=== PATIENT | female | born 1940 | race Caucasian/White ===

== ENCOUNTER 2022-08-12 18:23 | Emergency (ER) | payer MEDICARE, OTHER ==
[~2022-08-12] VITALS: Ht 165.1 cm; Wt 78.0 kg
[2022-08-12] MEDS ORDERED: ACETAMINOPHEN ES 500 MG TABLET PO ONE (18:30)
[2022-08-12] MEDS ORDERED: ACETAMINOPHEN ES 500 MG TABLET ONE (18:37)
[2022-08-12] MEDS ORDERED: SENN-261 PO (19:06)
[2022-08-12] MEDS ORDERED: BISA10SU11 RC (19:06)
[2022-08-12] MEDS ORDERED: ALBU8.5H8 IH (19:06)
[2022-08-12] MEDS ORDERED: RISP0.2515 PO (19:06)
[2022-08-12] MEDS ORDERED: AZEL137S7 (19:06)
[2022-08-12] MEDS ORDERED: MAGN400T26 PO (19:06)
[2022-08-12] MEDS ORDERED: BUDE10.22 IH (19:06)
[2022-08-12] MEDS ORDERED: LEVO125T8 PO (19:06)
[2022-08-12] MEDS ORDERED: ACET-868 PO (19:06)
[2022-08-12] MEDS ORDERED: OXCA300T4 PO (19:06)
[2022-08-12] MEDS ORDERED: TYL2T PO (19:06)
[2022-08-12] MEDS ORDERED: ACET-2605 PO (19:06)
[2022-08-12] MEDS ORDERED: IPRA21SP (19:06)
[2022-08-12] MEDS ORDERED: CLOT15CR27 TP (19:06)
[2022-08-12] MEDS ORDERED: METO25TA3 PO (19:06)
[2022-08-12] MEDS ORDERED: FLUT16SP (19:06)
[2022-08-12] MEDS ORDERED: DOCU-141 PO (19:06)
--- NOTE | 2022-08-12 19:10 | NUR ---
NISREEN BEST [address] "From [facility] earlier today +laceration at back of head". On room air, breathing evenly and unlabored. Kept comfortable, will continue to monitor accordingly.
--- NOTE | 2022-08-12 21:35 | NUR ---
[facility] CALLED ETA 90-120 MINUTES
--- NOTE | 2022-08-12 22:17 | NUR ---
REPORT GIVEN TO CELSO AT [facility]
[2022-08-12 23:11] VITALS: BP 110/66
--- NOTE | 2022-08-12 23:11 | NUR ---
patient picked up by private ambulance in no distress, going back to [facility].
== END 2022-08-12 23:11 ==
LOC: ER 18:29
DX: S01.01XA Laceration without foreign body of scalp, initial encounter (principal); R51.9 Headache, unspecified; W18.30XA Fall on same level, unspecified, initial encounter; Y93.89 Activity, other specified; Y92.89 Other specified places as the place of occurrence of the external cause; Y99.8 Other external cause status
CPT/HCPCS: 70450-TC

== ENCOUNTER 2023-03-31 12:25 | Inpatient (IN) | payer MEDICARE, OTHER ==
[~2023-03-31] VITALS: Ht 172.7 cm; Wt 78.5 kg
[~2023-03-31 12:25] MED LIST: ACET-2605 PO; ACET-868 PO; ALBU8.5H8 IH; AZEL137S7; BUDE10.22 IH; DOCU-141 PO; FLUT16SP; IPRA21SP; LEVO125T8 PO; MAG30ORA PO; MAGN400O6 PO; MAGN400T26 PO; METO25TA3 PO; NA P133E RC; OXCA300T4 PO; RISP0.2515 PO; SENN-261 PO; TYL2T PO
[2023-03-31 13:02] LABS: BASOPHILS # (AUTO) 0.1 K/uL (0.0-0.2); BASOPHILS % (AUTO) 1.2 % (0.0-2.0); EOSINOPHILS % (AUTO) 2.9 % (0.0-6.0); HEMATOCRIT 34 % (33-45); HEMOGLOBIN 11.3 g/dL (11.5-14.8); LYMPHOCYTES # (AUTO) 1.4 K/uL (0.8-4.8); LYMPHOCYTES % (AUTO) 22.8 % (20.0-44.0); MEAN CORPUSCULAR HGB CONC 33 g/dl (31.0-36.0); MEAN CORPUSCULAR VOLUME 90 fL (82-100); MONOCYTES # (AUTO) 0.4 K/uL (0.1-1.30); MONOCYTES % (AUTO) 6.7 % (2.0-12.0); NEUTROPHILS # (AUTO) 4.2 K/uL (1.8-8.9); NEUTROPHILS % (AUTO) 66.4 % (43.0-81.0); PLATELET COUNT (AUTO) 217 K/uL (150-450); RED BLOOD CELL COUNT(AUTO) 3.81 MIL/uL (4.0-5.2); WHITE BLOOD COUNT (AUTO) 6.3 K/uL (4.3-11.0)
[2023-03-31 13:16] LABS: ALANINE AMINOTRANSFERASE 51 U/L (12-78); ALBUMIN 3.3 g/dL (3.4-5.0); ALCOHOL, BLOOD < 3 mg/dL (0-10); ALKALINE PHOSPHATASE 83 U/L (46-116); ASPARTATE AMINOTRANSFERASE 25 U/L (15-37); BILIRUBIN,TOTAL 0.2 mg/dL (0.2-1.0); CALCIUM, SERUM 9.8 mg/dL (8.5-10.1); CARBON DIOXIDE 25 mmol/L (21-32); CHLORIDE 107 mmol/L (98-107); CREATININE 0.8 mg/dL (0.6-1.3); GLUCOSE 158 mg/dL (74-106); POTASSIUM 4.6 mmol/L (3.5-5.1); SODIUM SERUM 138 mmol/L (136-145); TOTAL PROTEIN, SERUM 6.8 g/dL (6.4-8.2); UREA NITROGEN, BLOOD 18 mg/dL (7-18)
[2023-03-31 15:24] LABS: BILIRUBIN,URINE NEGATIVE (NEGATIVE); COLOR,URINE YELLOW (YELLOW); LEUKOCYTE ESTERASE ,URINE NEGATIVE (NEGATIVE); NITRITE, URINE NEGATIVE (NEGATIVE); PROTEIN,URINE NEGATIVE (NEGATIVE); UGLUCOSE NEGATIVE (NEGATIVE); UROBILINOGEN,URINE 0.2 EU/dL (0.2)
[2023-03-31 20:00] VITALS: BP 153/79; TEMP 98.1; O2SAT 95
[2023-03-31] MEDS ORDERED: ACETAMINOPHEN 325 MG TABLET PO PRN (20:00)
[2023-03-31] MEDS ORDERED: MAG HYDROX/AL HYDROX/SIMETH 30 ML UDC PO PRN (20:00)
[2023-03-31] MEDS ORDERED: MAGNESIUM HYDROXIDE 30 ML UDC PO PRN (20:00)
[2023-03-31] MEDS ORDERED: LORAZEPAM 0.5 MG TABLET PO PRN (20:00)
[2023-03-31] MEDS ORDERED: BLOOD SUGAR DIAGNOSTIC 1 EACH STRIP IN ONE (20:00)
[2023-03-31 20:26] VITALS: BP 166/92; TEMP 98.1; O2SAT 95
[2023-04-01] MEDS: TEMAZEPAM 7.5 MG CAPSULE PO PRN (00:53)
[2023-04-01 07:14] LABS: CREATININE 0.7 mg/dL (0.6-1.3)
[2023-04-01 08:00] VITALS: BP 136/74; TEMP 98.7; O2SAT 95
[2023-04-01] MEDS ORDERED: NA PHOS,M-B/NA PHOS,DI-BA 1 EA ENEMA RC PRN (08:30)
[2023-04-01] MEDS ORDERED: ACETAMINOPHEN 325 MG TABLET PO PRN (08:30)
[2023-04-01] MEDS ORDERED: IPRATROPIUM BROMIDE 0.03 % 30 ML NASPR NS SCH (09:00)
[2023-04-01] MEDS ORDERED: ALBUTEROL FS 2.5 MG/0.5 ML VIAL.NEB IH PRN (09:00)
[2023-04-01] MEDS: FLUTICASONE PROPIONATE 16 GM BOTTLE NS SCH (09:52)
[2023-04-01] MEDS: DOCUSATE SODIUM 100 MG CAPSULE PO SCH ×2 (09:52→16:45)
[2023-04-01] MEDS: SENNOSIDES 8.6 MG TABLET PO SCH ×2 (09:52→16:44)
[2023-04-01] MEDS: METOPROLOL SUCCINATE 25 MG TAB.SR.24H PO SCH (09:53)
[2023-04-01] MEDS: MAGNESIUM OXIDE 400 MG TABLET PO SCH (09:53)
[2023-04-01] MEDS: OXCARBAZEPINE 150 MG TABLET PO SCH ×2 (14:15→16:44)
[2023-04-01] MEDS: risperiDONE 1 MG TABLET PO SCH ×5 (14:16→22:23)
[2023-04-01] MEDS ORDERED: IPRATROPIUM NEB FS 0.5 MG/2.5 ML AMPUL.NEB NEB SCH (15:30)
[2023-04-01 16:00] VITALS: BP 126/64; TEMP 97.7; O2SAT 96
[2023-04-01] MEDS ORDERED: ALBU2.5V13 IH (16:48)
[2023-04-01] MEDS ORDERED: FLUT16SP16 BNOSTRILS (16:48)
[2023-04-01] MEDS ORDERED: RISP0.5T5 PO (16:48)
[2023-04-01] MEDS ORDERED: ATOR20TA PO (16:48)
[2023-04-01] MEDS ORDERED: BUDE0.5A IH (16:48)
[2023-04-01] MEDS ORDERED: ALBU2.5V38 IH (16:48)
[2023-04-01] MEDS ORDERED: CLOTRIMAZOLE CREAM TP (16:48)
[2023-04-01 20:19] VITALS: BP 112/57; TEMP 97.5; O2SAT 96
[2023-04-02 08:00] VITALS: BP 139/73; TEMP 98.6; O2SAT 95
[2023-04-02] MEDS: DOCUSATE SODIUM 100 MG CAPSULE PO SCH ×3 (09:59→18:23)
[2023-04-02] MEDS: LEVOTHYROXINE SODIUM 125 MCG TABLET PO SCH (09:59)
[2023-04-02] MEDS: SENNOSIDES 8.6 MG TABLET PO SCH ×3 (09:59→18:24)
[2023-04-02] MEDS: risperiDONE 1 MG TABLET PO SCH ×6 (10:00→21:33)
[2023-04-02] MEDS: MAGNESIUM OXIDE 400 MG TABLET PO SCH (10:00)
[2023-04-02] MEDS: METOPROLOL SUCCINATE 25 MG TAB.SR.24H PO SCH (10:01)
[2023-04-02] MEDS: OXCARBAZEPINE 150 MG TABLET PO SCH ×5 (10:01→18:24)
[2023-04-02] MEDS: FLUTICASONE PROPIONATE 16 GM BOTTLE NS SCH (10:09)
[2023-04-02 16:00] VITALS: BP 108/51; TEMP 98.1; O2SAT 98
[2023-04-02 20:00] VITALS: BP 134/71; TEMP 98.2; O2SAT 99
[2023-04-02] MEDS: ACETAMINOPHEN 325 MG TABLET PO PRN (21:43)
[2023-04-03] MEDS: TEMAZEPAM 7.5 MG CAPSULE PO PRN (01:54)
[2023-04-03 08:00] VITALS: BP 116/68; TEMP 97.7; O2SAT 96
[2023-04-03] MEDS: SENNOSIDES 8.6 MG TABLET PO SCH ×2 (08:07→17:55)
[2023-04-03] MEDS: LEVOTHYROXINE SODIUM 125 MCG TABLET PO SCH (08:07)
[2023-04-03] MEDS: DOCUSATE SODIUM 100 MG CAPSULE PO SCH ×2 (08:07→17:55)
[2023-04-03] MEDS: METOPROLOL SUCCINATE 25 MG TAB.SR.24H PO SCH (08:07)
[2023-04-03] MEDS: OXCARBAZEPINE 150 MG TABLET PO SCH ×3 (08:07→17:55)
[2023-04-03] MEDS: risperiDONE 1 MG TABLET PO SCH ×3 (08:08→21:48)
[2023-04-03] MEDS: MAGNESIUM OXIDE 400 MG TABLET PO SCH (08:08)
[2023-04-03] MEDS: FLUTICASONE PROPIONATE 16 GM BOTTLE NS SCH (08:09)
[2023-04-03 16:00] VITALS: BP 135/67; TEMP 98.6; O2SAT 96
[2023-04-03 20:00] VITALS: BP 123/58; TEMP 97.4; O2SAT 95
[2023-04-03] MEDS: BUDESONIDE RESPULE INH 0.5 MG/2 ML AMPUL.NEB NEB SCH ×2 (20:40→20:43)
[2023-04-03] MEDS: ALBUTEROL FS 2.5 MG/0.5 ML VIAL.NEB NEB SCH ×2 (20:40→20:43)
[2023-04-03 20:43] VITALS: O2SAT 96
[2023-04-03 21:06] VITALS: O2SAT 95
[2023-04-04] VITALS (10 sets, daily range): BP systolic 119–134; BP diastolic 54–66; TEMP 97.7–98.4; O2SAT 95–98
[2023-04-04] MEDS: ALBUTEROL FS 2.5 MG/0.5 ML VIAL.NEB NEB SCH ×4 (01:00→20:21)
[2023-04-04] MEDS: LEVOTHYROXINE SODIUM 125 MCG TABLET PO SCH ×2 (07:30→10:16)
[2023-04-04] MEDS: BUDESONIDE RESPULE INH 0.5 MG/2 ML AMPUL.NEB NEB SCH ×2 (08:24→20:21)
[2023-04-04] MEDS: SENNOSIDES 8.6 MG TABLET PO SCH ×3 (09:00→17:00)
[2023-04-04] MEDS: risperiDONE 1 MG TABLET PO SCH ×4 (09:00→21:19)
[2023-04-04] MEDS: DOCUSATE SODIUM 100 MG CAPSULE PO SCH ×3 (09:00→18:32)
[2023-04-04] MEDS: METOPROLOL SUCCINATE 25 MG TAB.SR.24H PO SCH ×2 (09:00→10:15)
[2023-04-04] MEDS: MAGNESIUM OXIDE 400 MG TABLET PO SCH ×2 (09:00→10:19)
[2023-04-04] MEDS: OXCARBAZEPINE 150 MG TABLET PO SCH ×3 (10:16→17:00)
[2023-04-04] MEDS: FLUTICASONE PROPIONATE 16 GM BOTTLE NS SCH (10:21)
[2023-04-04] MEDS: ACETAMINOPHEN 325 MG TABLET PO PRN (18:34)
[2023-04-05] MEDS: ALBUTEROL FS 2.5 MG/0.5 ML VIAL.NEB NEB SCH ×4 (00:45→19:30)
[2023-04-05] MEDS: BUDESONIDE RESPULE INH 0.5 MG/2 ML AMPUL.NEB NEB SCH ×2 (07:30→19:30)
[2023-04-05 08:00] VITALS: BP 143/69; TEMP 97.6; O2SAT 96
[2023-04-05] MEDS: risperiDONE 1 MG TABLET PO SCH ×5 (08:59→21:12)
[2023-04-05] MEDS: METOPROLOL SUCCINATE 25 MG TAB.SR.24H PO SCH ×2 (08:59→09:00)
[2023-04-05] MEDS: OXCARBAZEPINE 150 MG TABLET PO SCH ×4 (08:59→17:00)
[2023-04-05] MEDS: MAGNESIUM OXIDE 400 MG TABLET PO SCH ×2 (08:59→09:00)
[2023-04-05] MEDS: LEVOTHYROXINE SODIUM 125 MCG TABLET PO SCH (08:59)
[2023-04-05] MEDS: DOCUSATE SODIUM 100 MG CAPSULE PO SCH ×3 (08:59→17:00)
[2023-04-05] MEDS: SENNOSIDES 8.6 MG TABLET PO SCH ×3 (08:59→17:00)
[2023-04-05] MEDS: FLUTICASONE PROPIONATE 16 GM BOTTLE NS SCH (09:01)
[2023-04-05] MEDS ORDERED: OLANZAPINE 10 MG VIAL IM ONE (11:00)
[2023-04-05 16:00] VITALS: BP 122/58; TEMP 97.8; O2SAT 98
[2023-04-05 20:00] VITALS: BP 134/82; TEMP 98; O2SAT 97
[2023-04-05 20:49] VITALS: O2SAT 97
[2023-04-06] MEDS: ALBUTEROL FS 2.5 MG/0.5 ML VIAL.NEB NEB SCH ×3 (01:30→13:30)
[2023-04-06 02:03] VITALS: O2SAT 95
[2023-04-06] MEDS: BUDESONIDE RESPULE INH 0.5 MG/2 ML AMPUL.NEB NEB SCH (07:30)
[2023-04-06] MEDS: LEVOTHYROXINE SODIUM 125 MCG TABLET PO SCH ×2 (07:30→08:29)
[2023-04-06 08:00] VITALS: BP 131/77; TEMP 97.8; O2SAT 96
[2023-04-06] MEDS: OXCARBAZEPINE 150 MG TABLET PO SCH ×3 (08:33→17:00)
[2023-04-06] MEDS: METOPROLOL SUCCINATE 25 MG TAB.SR.24H PO SCH ×2 (08:33→09:00)
[2023-04-06] MEDS: DOCUSATE SODIUM 100 MG CAPSULE PO SCH ×3 (08:33→17:00)
[2023-04-06] MEDS: MAGNESIUM OXIDE 400 MG TABLET PO SCH ×2 (08:33→09:00)
[2023-04-06] MEDS: SENNOSIDES 8.6 MG TABLET PO SCH ×3 (08:34→17:00)
[2023-04-06] MEDS: risperiDONE 1 MG TABLET PO SCH ×4 (08:35→21:08)
[2023-04-06] MEDS: FLUTICASONE PROPIONATE 16 GM BOTTLE NS SCH ×2 (08:36→09:00)
[2023-04-06 16:00] VITALS: BP 117/60; TEMP 97.8; O2SAT 96
[2023-04-06 20:00] VITALS: BP 128/70; TEMP 98; O2SAT 98
[2023-04-07] MEDS: LEVOTHYROXINE SODIUM 125 MCG TABLET PO SCH (07:30)
[2023-04-07 08:00] VITALS: BP 141/72; TEMP 97.7; O2SAT 94
[2023-04-07] MEDS: DOCUSATE SODIUM 100 MG CAPSULE PO SCH ×2 (08:54→17:00)
[2023-04-07] MEDS: SENNOSIDES 8.6 MG TABLET PO SCH ×2 (08:54→17:00)
[2023-04-07] MEDS: risperiDONE 1 MG TABLET PO SCH ×3 (09:00→21:14)
[2023-04-07] MEDS: METOPROLOL SUCCINATE 25 MG TAB.SR.24H PO SCH (09:00)
[2023-04-07] MEDS: FLUTICASONE PROPIONATE 16 GM BOTTLE NS SCH (09:00)
[2023-04-07] MEDS: MAGNESIUM OXIDE 400 MG TABLET PO SCH (09:00)
[2023-04-07] MEDS: OXCARBAZEPINE 150 MG TABLET PO SCH ×3 (09:00→16:57)
[2023-04-07 16:00] VITALS: BP 129/70; TEMP 97.8; O2SAT 94
[2023-04-07 20:00] VITALS: BP 152/77; TEMP 97.9; O2SAT 96
[2023-04-08] MEDS: LEVOTHYROXINE SODIUM 125 MCG TABLET PO SCH (07:27)
[2023-04-08 08:00] VITALS: BP 112/58; TEMP 97.7; O2SAT 97
[2023-04-08] MEDS: SENNOSIDES 8.6 MG TABLET PO SCH ×3 (08:53→17:00)
[2023-04-08] MEDS: FLUTICASONE PROPIONATE 16 GM BOTTLE NS SCH (08:53)
[2023-04-08] MEDS: DOCUSATE SODIUM 100 MG CAPSULE PO SCH ×3 (08:53→17:00)
[2023-04-08] MEDS: risperiDONE 1 MG TABLET PO SCH ×3 (08:53→22:06)
[2023-04-08] MEDS: METOPROLOL SUCCINATE 25 MG TAB.SR.24H PO SCH ×2 (08:54→09:00)
[2023-04-08] MEDS: OXCARBAZEPINE 150 MG TABLET PO SCH ×3 (08:54→17:00)
[2023-04-08] MEDS: MAGNESIUM OXIDE 400 MG TABLET PO SCH (08:55)
[2023-04-08 16:00] VITALS: BP 134/56; TEMP 97.7; O2SAT 96
[2023-04-08 20:30] VITALS: BP 133/72; TEMP 97.4; O2SAT 96
[2023-04-09] MEDS: BUDESONIDE RESPULE INH 0.5 MG/2 ML AMPUL.NEB NEB SCH ×2 (07:17→19:30)
[2023-04-09] MEDS: ALBUTEROL FS 2.5 MG/0.5 ML VIAL.NEB NEB SCH ×3 (07:18→19:30)
[2023-04-09] MEDS: LEVOTHYROXINE SODIUM 125 MCG TABLET PO SCH (07:57)
[2023-04-09 08:00] VITALS: BP 123/55; TEMP 97.9; O2SAT 97
[2023-04-09] MEDS ORDERED: Z GUARD REMEDY 4 OZ OINT TP PRN (08:00)
[2023-04-09] MEDS: OXCARBAZEPINE 150 MG TABLET PO SCH ×3 (08:01→16:14)
[2023-04-09] MEDS: risperiDONE 1 MG TABLET PO SCH ×4 (08:01→22:00)
[2023-04-09] MEDS: SENNOSIDES 8.6 MG TABLET PO SCH ×2 (08:02→16:14)
[2023-04-09] MEDS: MAGNESIUM OXIDE 400 MG TABLET PO SCH (08:02)
[2023-04-09] MEDS: DOCUSATE SODIUM 100 MG CAPSULE PO SCH ×2 (08:02→16:13)
[2023-04-09] MEDS: METOPROLOL SUCCINATE 25 MG TAB.SR.24H PO SCH (08:02)
[2023-04-09] MEDS: FLUTICASONE PROPIONATE 16 GM BOTTLE NS SCH (08:07)
[2023-04-09] MEDS: Z GUARD REMEDY 4 OZ OINT TP SCH (08:08)
[2023-04-09 16:00] VITALS: BP 122/67; TEMP 98; O2SAT 95
[2023-04-09] MEDS: MEMANTINE HCL 5 MG TABLET PO SCH ×2 (22:00→22:08)
[2023-04-10] MEDS: ALBUTEROL FS 2.5 MG/0.5 ML VIAL.NEB NEB SCH ×4 (01:30→19:30)
[2023-04-10] MEDS: BUDESONIDE RESPULE INH 0.5 MG/2 ML AMPUL.NEB NEB SCH ×2 (07:30→19:30)
[2023-04-10 08:00] VITALS: BP 132/71; TEMP 97.7; O2SAT 98
[2023-04-10] MEDS: OXCARBAZEPINE 150 MG TABLET PO SCH ×5 (09:00→18:10)
[2023-04-10] MEDS: METOPROLOL SUCCINATE 25 MG TAB.SR.24H PO SCH ×2 (09:00→09:16)
[2023-04-10] MEDS: SENNOSIDES 8.6 MG TABLET PO SCH ×3 (09:00→18:09)
[2023-04-10] MEDS: FLUTICASONE PROPIONATE 16 GM BOTTLE NS SCH (09:14)
[2023-04-10] MEDS: Z GUARD REMEDY 4 OZ OINT TP SCH (09:15)
[2023-04-10] MEDS: DOCUSATE SODIUM 100 MG CAPSULE PO SCH ×2 (09:16→18:10)
[2023-04-10] MEDS: MAGNESIUM OXIDE 400 MG TABLET PO SCH (09:16)
[2023-04-10] MEDS: risperiDONE 1 MG TABLET PO SCH ×3 (09:17→23:01)
[2023-04-10] MEDS: LEVOTHYROXINE SODIUM 125 MCG TABLET PO SCH (09:17)
[2023-04-10 16:00] VITALS: BP 125/69; TEMP 97.4; O2SAT 99
[2023-04-10 20:00] VITALS: BP 125/68; TEMP 97.5; O2SAT 98
[2023-04-10] MEDS: MEMANTINE HCL 5 MG TABLET PO SCH (23:01)
[2023-04-11] MEDS: ALBUTEROL FS 2.5 MG/0.5 ML VIAL.NEB NEB SCH ×4 (01:30→19:30)
[2023-04-11 07:12] LABS: BASOPHILS # (AUTO) 0.1 K/uL (0.0-0.2); BASOPHILS % (AUTO) 1.5 % (0.0-2.0); EOSINOPHILS % (AUTO) 4.7 % (0.0-6.0); HEMATOCRIT 32 % (33-45); HEMOGLOBIN 10.8 g/dL (11.5-14.8); LYMPHOCYTES # (AUTO) 1.5 K/uL (0.8-4.8); LYMPHOCYTES % (AUTO) 27.9 % (20.0-44.0); MEAN CORPUSCULAR HGB CONC 34 g/dl (31.0-36.0); MEAN CORPUSCULAR VOLUME 88 fL (82-100); MONOCYTES # (AUTO) 0.4 K/uL (0.1-1.30); MONOCYTES % (AUTO) 7.5 % (2.0-12.0); NEUTROPHILS # (AUTO) 3.1 K/uL (1.8-8.9); NEUTROPHILS % (AUTO) 58.4 % (43.0-81.0); PLATELET COUNT (AUTO) 218 K/uL (150-450); RED BLOOD CELL COUNT(AUTO) 3.64 MIL/uL (4.0-5.2); WHITE BLOOD COUNT (AUTO) 5.4 K/uL (4.3-11.0)
[2023-04-11 07:26] LABS: ALBUMIN 3.2 g/dL (3.4-5.0); BILIRUBIN,TOTAL 0.3 mg/dL (0.2-1.0); CALCIUM, SERUM 10.3 mg/dL (8.5-10.1); CREATININE 0.6 mg/dL (0.6-1.3); POTASSIUM 4.1 mmol/L (3.5-5.1); TOTAL PROTEIN, SERUM 6.5 g/dL (6.4-8.2)
[2023-04-11] MEDS: BUDESONIDE RESPULE INH 0.5 MG/2 ML AMPUL.NEB NEB SCH ×2 (07:30→19:30)
[2023-04-11] MEDS: LEVOTHYROXINE SODIUM 125 MCG TABLET PO SCH ×2 (07:30→08:45)
[2023-04-11 08:00] VITALS: BP 122/58; TEMP 97.8; O2SAT 98
[2023-04-11] MEDS: DOCUSATE SODIUM 100 MG CAPSULE PO SCH ×3 (08:45→18:16)
[2023-04-11] MEDS: risperiDONE 1 MG TABLET PO SCH ×6 (08:45→22:00)
[2023-04-11] MEDS: SENNOSIDES 8.6 MG TABLET PO SCH ×4 (08:45→18:16)
[2023-04-11] MEDS: MAGNESIUM OXIDE 400 MG TABLET PO SCH ×2 (08:45→09:00)
[2023-04-11] MEDS: MEMANTINE HCL 5 MG TABLET PO SCH ×4 (08:46→21:32)
[2023-04-11] MEDS: OXCARBAZEPINE 150 MG TABLET PO SCH ×4 (08:46→18:16)
[2023-04-11] MEDS: METOPROLOL SUCCINATE 25 MG TAB.SR.24H PO SCH ×2 (08:47→09:00)
[2023-04-11] MEDS: FLUTICASONE PROPIONATE 16 GM BOTTLE NS SCH ×2 (08:48→09:00)
[2023-04-11] MEDS: Z GUARD REMEDY 4 OZ OINT TP SCH (09:00)
[2023-04-11 16:00] VITALS: BP 133/74; TEMP 98; TEMP 98.1; O2SAT 96
[2023-04-11 20:00] VITALS: BP 131/62; TEMP 97.5; O2SAT 97
[2023-04-12] MEDS: ALBUTEROL FS 2.5 MG/0.5 ML VIAL.NEB NEB SCH ×3 (02:05→13:15)
[2023-04-12] MEDS: BUDESONIDE RESPULE INH 0.5 MG/2 ML AMPUL.NEB NEB SCH (07:30)
[2023-04-12 08:00] VITALS: BP 122/64; TEMP 97.7; O2SAT 100
[2023-04-12 08:42] VITALS: BP 122/64
[2023-04-12] MEDS: METOPROLOL SUCCINATE 25 MG TAB.SR.24H PO SCH (08:42)
[2023-04-12] MEDS: LEVOTHYROXINE SODIUM 125 MCG TABLET PO SCH (08:42)
[2023-04-12] MEDS: OXCARBAZEPINE 150 MG TABLET PO SCH ×2 (08:42→12:34)
[2023-04-12] MEDS: DOCUSATE SODIUM 100 MG CAPSULE PO SCH (08:42)
[2023-04-12] MEDS: MEMANTINE HCL 5 MG TABLET PO SCH (08:42)
[2023-04-12] MEDS: MAGNESIUM OXIDE 400 MG TABLET PO SCH (08:42)
[2023-04-12] MEDS: risperiDONE 1 MG TABLET PO SCH (08:43)
[2023-04-12] MEDS: SENNOSIDES 8.6 MG TABLET PO SCH (08:43)
[2023-04-12] MEDS: FLUTICASONE PROPIONATE 16 GM BOTTLE NS SCH (08:43)
[2023-04-12] MEDS: Z GUARD REMEDY 4 OZ OINT TP SCH (08:44)
[2023-04-12] MEDS: ACETAMINOPHEN 325 MG TABLET PO PRN (12:36)
== END 2023-04-12 13:30 | DRG 885 ==
LOC: ER 12:29 → GPS 18:45
PROVIDERS: ADMIT Psychiatry & Neurology Psychosomatic Medicine; ATTEND Internal Medicine
DX: F31.9 Bipolar disorder, unspecified (principal); F02.83 Dementia in other diseases classified elsewhere, unspecified severity, with mood disturbance; F02.818 Dementia in other diseases classified elsewhere, unspecified severity, with other behavioral disturbance; F02.84 Dementia in other diseases classified elsewhere, unspecified severity, with anxiety; E44.0 Moderate protein-calorie malnutrition; F25.9 Schizoaffective disorder, unspecified; F60.9 Personality disorder, unspecified; G30.9 Alzheimer's disease, unspecified; F25.8 Other schizoaffective disorders; E03.9 Hypothyroidism, unspecified; I10 Essential (primary) hypertension; Z79.899 Other long term (current) drug therapy; Z68.26 Body mass index [BMI] 26.0-26.9, adult; D64.9 Anemia, unspecified; Z95.2 Presence of prosthetic heart valve; Z86.73 Personal history of transient ischemic attack (TIA), and cerebral infarction without residual deficits; Z91.81 History of falling; M62.81 Muscle weakness (generalized); Z91.199 Patient's noncompliance with other medical treatment and regimen due to unspecified reason; Z88.0 Allergy status to penicillin; Z91.83 Wandering in diseases classified elsewhere; J44.9 Chronic obstructive pulmonary disease, unspecified; Z79.51 Long term (current) use of inhaled steroids; Z79.890 Hormone replacement therapy; E88.09 Other disorders of plasma-protein metabolism, not elsewhere classified
CPT/HCPCS: 36415; 80048-TC; 80053-TC; 80061-TC; 80076-TC; 80164-TC; 82565-TC; 82962-TC; 83735-TC; 84439-TC; 84443-TC; 85025-TC; 87081-TC; 94799-TC; 97112-TC; 97116-TC; 97530-TC; G0480; J3490

== ENCOUNTER 2023-09-03 00:05 | Inpatient (IN) | payer MEDICARE, OTHER ==
[~2023-09-03] VITALS: Ht 177.8 cm; Wt 81.6 kg
[~2023-09-03 00:05] MED LIST changes: -ACET-2605 PO; +ALBU2.5V13 IH; +ALBU2.5V38 IH; +ATOR20TA PO; -AZEL137S7; +BUDE0.5A IH; -BUDE10.22 IH; +CLOTRIMAZOLE CREAM TP; -FLUT16SP; +FLUT16SP16 BNOSTRILS; -IPRA21SP; +RISP0.5T5 PO; -TYL2T PO
[2023-09-03 00:47] LABS: BASOPHILS % (AUTO) 0.4 % (0.0-2.0); EOSINOPHILS % (AUTO) 0.2 % (0.0-6.0); HEMATOCRIT 28 % (33-45); HEMOGLOBIN 9.1 g/dL (11.5-14.8); LYMPHOCYTES # (AUTO) 0.8 K/uL (0.8-4.8); MEAN CORPUSCULAR HEMOGLOBIN 29 PG (26.0-33.0); MEAN CORPUSCULAR HGB CONC 33 g/dl (31.0-36.0); MEAN CORPUSCULAR VOLUME 89 fL (82-100); MONOCYTES # (AUTO) 1.1 K/uL (0.1-1.30); MONOCYTES % (AUTO) 11.9 % (2.0-12.0); NEUTROPHILS # (AUTO) 7.1 K/uL (1.8-8.9); NEUTROPHILS % (AUTO) 78.5 % (43.0-81.0); PLATELET COUNT (AUTO) 338 K/uL (150-450); RED BLOOD CELL COUNT(AUTO) 3.13 MIL/uL (4.0-5.2); RED CELL DISTRIBUTION WIDTH 13.9 % (11.5-15.0); WHITE BLOOD COUNT (AUTO) 9.1 K/uL (4.3-11.0)
[2023-09-03 00:54] LABS: CALCIUM, SERUM 10.5 mg/dL (8.5-10.1); CARBON DIOXIDE 27 mmol/L (21-32); CHLORIDE 103 mmol/L (98-107); CREATININE 0.8 mg/dL (0.6-1.3); GLUCOSE 133 mg/dL (74-106); POTASSIUM 3.7 mmol/L (3.5-5.1); SODIUM SERUM 138 mmol/L (136-145); UREA NITROGEN, BLOOD 23 mg/dL (7-18)
[2023-09-03 01:06] LABS: INR 1.11 (0.91-1.10); PARTIAL THROMBOPLASTIN TIME 29.6 SEC (24.3-34.3); PROTHROMBIN TIME 11.7 SECS (9.2-11.1)
[2023-09-03 01:07] LABS: ALANINE AMINOTRANSFERASE 82 U/L (12-78); ALBUMIN 2.6 g/dL (3.4-5.0); ALKALINE PHOSPHATASE 95 U/L (46-116); ASPARTATE AMINOTRANSFERASE 44 U/L (15-37); BILIRUBIN,DIRECT 0.1 mg/dL (0.0-0.2); BILIRUBIN,TOTAL 0.3 mg/dL (0.2-1.0); NT-PRO BNP 731 pg/mL (0-125); TOTAL PROTEIN, SERUM 7.2 g/dL (6.4-8.2)
[2023-09-03] MEDS ORDERED: LEVOFLOXACIN 750 MG /D5W 150ML PIGGYBACK IV ONE (01:30)
[2023-09-03] MEDS ORDERED: IV NS 0.9% 1,000 ML BAG IV ONE (01:30)
[2023-09-03] MEDS ORDERED: LEVOFLOXACIN 750 MG /D5W 150ML 150 ML IV ONE (01:35)
[2023-09-03] MEDS ORDERED: ACETAMINOPHEN 325 MG TABLET PO PRN (03:00)
[2023-09-03] MEDS ORDERED: ZOLPIDEM TARTRATE 5 MG TABLET PO PRN (03:00)
[2023-09-03] MEDS ORDERED: Z GUARD REMEDY 4 OZ OINT TP PRN (03:00)
[2023-09-03] MEDS ORDERED: MAG HYDROX/AL HYDROX/SIMETH 30 ML UDC PO PRN (03:00)
[2023-09-03] MEDS ORDERED: ONDANSETRON HCL/PF 4 MG/2 ML VIAL IVP PRN (03:00)
[2023-09-03] MEDS ORDERED: MAGNESIUM HYDROXIDE 30 ML UDC PO PRN (03:00)
[2023-09-03 03:20] VITALS: BP 112/66; TEMP 98.6; O2SAT 94
[2023-09-03] MEDS: IV NS 0.9% 1,000 ML IV PRN ×2 (04:02→22:22)
[2023-09-03] MEDS: ENOXAPARIN SODIUM 40 MG/0.4 ML DISP.SYRIN SQ SCH (04:03)
[2023-09-03 07:30] VITALS: BP 147/74; TEMP 97.5; O2SAT 95
[2023-09-03] MEDS: PANTOPRAZOLE 40 MG TABLET.DR PO SCH (07:30)
[2023-09-03 07:40] LABS: ALBUMIN 2.3 g/dL (3.4-5.0); BILIRUBIN,DIRECT 0.1 mg/dL (0.0-0.2); BILIRUBIN,TOTAL 0.3 mg/dL (0.2-1.0); TOTAL PROTEIN, SERUM 6.7 g/dL (6.4-8.2)
[2023-09-03] MEDS ORDERED: RISP1TAB97 PO (08:15)
[2023-09-03] MEDS ORDERED: MEMA5TAB42 PO (08:15)
[2023-09-03] MEDS ORDERED: ACET-2605 PO (08:15)
[2023-09-03] MEDS ORDERED: ALLA266C2 TP (08:15)
[2023-09-03] MEDS: methylPREDNISolone SOD SUCC 125 MG/2ML VIAL IV SCH ×2 (11:50→18:07)
[2023-09-03] MEDS ORDERED: CEFEPIME 1 GM in IV D5W 50 ML IV SCH (12:00)
[2023-09-03] MEDS: CEFEPIME 2 GM in IV D5W 100 ML IV SCH ×2 (12:43→23:12)
[2023-09-03 13:31] LABS: APPEARANCE,URINE TURBID (CLEAR); BILIRUBIN,URINE NEGATIVE (NEGATIVE); BLOOD, URINE NEGATIVE Ery/uL (NEGATIVE); COLOR,URINE DARK YELLOW (YELLOW); KETONES,URINE TRACE mg/dL (NEGATIVE); LEUKOCYTE ESTERASE ,URINE TRACE (NEGATIVE); NITRITE, URINE POSITIVE (NEGATIVE); PH,URINE 5.5 (5.0-8.0); PROTEIN,URINE 1+ mg/dl (NEGATIVE); UGLUCOSE NEGATIVE (NEGATIVE); UROBILINOGEN,URINE 0.2 EU/dL (0.2)
[2023-09-03 13:58] LABS: ADD URINE CULTURE YES; BACTERIA,URINE Many /HPF (None Seen); SQUAMOUS EPITHELIAL CELL,UR Few /HPF (None Seen); WBC,URINE TOO NUMEROUS TO COUN /HPF (0-3)
[2023-09-03 16:00] VITALS: BP 131/81; TEMP 98.4; O2SAT 94
[2023-09-03 20:16] VITALS: BP 136/79; TEMP 98.6; O2SAT 92
[2023-09-03] MEDS ORDERED: LEVOFLOXACIN 500 MG /D5W 100ML 500 MG in PREMIX 1 EA IV SCH (22:00)
[2023-09-04 06:25] LABS: BASOPHILS % (AUTO) 0.2 % (0.0-2.0); HEMATOCRIT 27 % (33-45); HEMOGLOBIN 8.6 g/dL (11.5-14.8); LYMPHOCYTES # (AUTO) 0.7 K/uL (0.8-4.8); LYMPHOCYTES % (AUTO) 7.2 % (20.0-44.0); MEAN CORPUSCULAR HEMOGLOBIN 29 PG (26.0-33.0); MEAN CORPUSCULAR HGB CONC 33 g/dl (31.0-36.0); MEAN CORPUSCULAR VOLUME 89 fL (82-100); MONOCYTES # (AUTO) 0.5 K/uL (0.1-1.30); MONOCYTES % (AUTO) 4.5 % (2.0-12.0); NEUTROPHILS # (AUTO) 8.8 K/uL (1.8-8.9); NEUTROPHILS % (AUTO) 88.1 % (43.0-81.0); PLATELET COUNT (AUTO) 371 K/uL (150-450); RED BLOOD CELL COUNT(AUTO) 2.99 MIL/uL (4.0-5.2); RED CELL DISTRIBUTION WIDTH 13.7 % (11.5-15.0)
[2023-09-04 06:52] LABS: THYROID STIMULATING HORMONE 8.468 uIU/mL (0.358-3.74)
[2023-09-04 07:00] LABS: CALCIUM, SERUM 10.7 mg/dL (8.5-10.1); CREATININE 0.7 mg/dL (0.6-1.3); MAGNESIUM 2.3 mg/dL (1.8-2.4); PHOSPHORUS 2.5 mg/dL (2.5-4.9); POTASSIUM 3.6 mmol/L (3.5-5.1)
[2023-09-04] MEDS: PANTOPRAZOLE 40 MG TABLET.DR PO SCH ×2 (07:30→10:40)
[2023-09-04 09:09] VITALS: BP 136/74; TEMP 97.9; O2SAT 92
[2023-09-04] MEDS: METOPROLOL SUCCINATE 25 MG TAB.SR.24H PO SCH ×2 (09:30→10:40)
[2023-09-04] MEDS: LEVOTHYROXINE SODIUM 125 MCG TABLET PO SCH ×2 (09:30→10:40)
[2023-09-04] MEDS: MAGNESIUM OXIDE 400 MG TABLET PO SCH (09:30)
[2023-09-04] MEDS ORDERED: NA PHOS,M-B/NA PHOS,DI-BA 1 EA ENEMA RC PRN (09:30)
[2023-09-04] MEDS: MEMANTINE HCL 5 MG TABLET PO SCH ×3 (09:30→17:44)
[2023-09-04] MEDS: FLUTICASONE PROPIONATE 16 GM BOTTLE NS SCH ×2 (09:30→10:47)
[2023-09-04] MEDS ORDERED: IPRATROPIUM NEB FS 0.5 MG/2.5 ML AMPUL.NEB NEB PRN (10:00)
[2023-09-04] MEDS ORDERED: MAG HYDROX/AL HYDROX/SIMETH 30 ML UDC PO PRN (10:00)
[2023-09-04] MEDS ORDERED: ALBUTEROL FS 2.5 MG/3 ML VIAL.NEB NEB PRN (10:00)
[2023-09-04] MEDS: ENOXAPARIN SODIUM 40 MG/0.4 ML DISP.SYRIN SQ SCH (10:20)
[2023-09-04] MEDS: methylPREDNISolone SOD SUCC 125 MG/2ML VIAL IV SCH ×2 (10:30→11:15)
[2023-09-04] MEDS: CEFEPIME 2 GM in IV D5W 100 ML IV SCH ×2 (12:16→23:32)
[2023-09-04] MEDS: OXCARBAZEPINE 150 MG TABLET PO SCH ×2 (12:35→17:45)
[2023-09-04] MEDS: DOCUSATE SODIUM 100 MG CAPSULE PO SCH (17:45)
[2023-09-04] MEDS: SENNOSIDES 8.6 MG TABLET PO SCH (17:45)
[2023-09-04 18:39] VITALS: BP 146/83; TEMP 98.2; O2SAT 98
[2023-09-04 19:00] VITALS: BP 138/88; TEMP 98; O2SAT 95
[2023-09-04 20:00] VITALS: BP 137/88; TEMP 98; O2SAT 98
[2023-09-04] MEDS: IV NS 0.9% 1,000 ML IV PRN (20:06)
[2023-09-05 07:12] LABS: CALCIUM, SERUM 10.4 mg/dL (8.5-10.1); CREATININE 0.7 mg/dL (0.6-1.3); POTASSIUM 3.5 mmol/L (3.5-5.1)
[2023-09-05] MEDS: LEVOTHYROXINE SODIUM 125 MCG TABLET PO SCH (07:30)
[2023-09-05] MEDS: PANTOPRAZOLE 40 MG TABLET.DR PO SCH (07:30)
[2023-09-05 08:00] VITALS: BP 154/87; TEMP 98.2; O2SAT 93
[2023-09-05] MEDS: DOCUSATE SODIUM 100 MG CAPSULE PO SCH ×2 (09:10→17:37)
[2023-09-05] MEDS: METOPROLOL SUCCINATE 25 MG TAB.SR.24H PO SCH (09:11)
[2023-09-05] MEDS: SENNOSIDES 8.6 MG TABLET PO SCH ×2 (09:11→17:37)
[2023-09-05] MEDS: OXCARBAZEPINE 150 MG TABLET PO SCH ×3 (09:12→17:37)
[2023-09-05] MEDS: MEMANTINE HCL 5 MG TABLET PO SCH ×2 (09:12→17:37)
[2023-09-05] MEDS: FLUTICASONE PROPIONATE 16 GM BOTTLE NS SCH (09:12)
[2023-09-05] MEDS: MAGNESIUM OXIDE 400 MG TABLET PO SCH (09:13)
[2023-09-05] MEDS: ENOXAPARIN SODIUM 40 MG/0.4 ML DISP.SYRIN SQ SCH (09:16)
[2023-09-05] MEDS: CEFEPIME 2 GM in IV D5W 100 ML IV SCH (12:34)
[2023-09-05] MEDS: IV NS 0.9% 1,000 ML IV PRN (12:47)
[2023-09-05 16:00] VITALS: BP 128/73; TEMP 97.9; O2SAT 98
[2023-09-05 20:00] VITALS: BP 144/88; TEMP 98.6; O2SAT 92
[2023-09-06] MEDS: CEFEPIME 2 GM in IV D5W 100 ML IV SCH ×3 (00:01→23:05)
[2023-09-06 05:52] LABS: BASOPHILS % (AUTO) 0.3 % (0.0-2.0); EOSINOPHILS # (AUTO) 0.1 K/uL (0.0-0.7); EOSINOPHILS % (AUTO) 0.7 % (0.0-6.0); HEMATOCRIT 30 % (33-45); HEMOGLOBIN 9.8 g/dL (11.5-14.8); LYMPHOCYTES # (AUTO) 0.7 K/uL (0.8-4.8); LYMPHOCYTES % (AUTO) 4.4 % (20.0-44.0); MEAN CORPUSCULAR HEMOGLOBIN 29 PG (26.0-33.0); MEAN CORPUSCULAR HGB CONC 33 g/dl (31.0-36.0); MEAN CORPUSCULAR VOLUME 88 fL (82-100); MONOCYTES # (AUTO) 0.6 K/uL (0.1-1.30); NEUTROPHILS # (AUTO) 14.4 K/uL (1.8-8.9); NEUTROPHILS % (AUTO) 90.6 % (43.0-81.0); PLATELET COUNT (AUTO) 441 K/uL (150-450); RED BLOOD CELL COUNT(AUTO) 3.39 MIL/uL (4.0-5.2); RED CELL DISTRIBUTION WIDTH 14.2 % (11.5-15.0); WHITE BLOOD COUNT (AUTO) 15.9 K/uL (4.3-11.0)
[2023-09-06 06:07] LABS: CALCIUM, SERUM 10.1 mg/dL (8.5-10.1); CREATININE 0.6 mg/dL (0.6-1.3); POTASSIUM 3.5 mmol/L (3.5-5.1)
[2023-09-06] MEDS: MAGNESIUM OXIDE 400 MG TABLET PO SCH (09:03)
[2023-09-06] MEDS: SENNOSIDES 8.6 MG TABLET PO SCH ×3 (09:03→17:53)
[2023-09-06] MEDS: METOPROLOL SUCCINATE 25 MG TAB.SR.24H PO SCH (09:04)
[2023-09-06] MEDS: PANTOPRAZOLE 40 MG TABLET.DR PO SCH (09:04)
[2023-09-06] MEDS: MEMANTINE HCL 5 MG TABLET PO SCH ×3 (09:04→17:53)
[2023-09-06] MEDS: DOCUSATE SODIUM 100 MG CAPSULE PO SCH ×3 (09:04→17:53)
[2023-09-06] MEDS: OXCARBAZEPINE 150 MG TABLET PO SCH ×4 (09:05→17:54)
[2023-09-06] MEDS: LEVOTHYROXINE SODIUM 125 MCG TABLET PO SCH (09:05)
[2023-09-06] MEDS: ENOXAPARIN SODIUM 40 MG/0.4 ML DISP.SYRIN SQ SCH (09:06)
[2023-09-06] MEDS: FLUTICASONE PROPIONATE 16 GM BOTTLE NS SCH (09:17)
[2023-09-06 09:18] VITALS: BP 136/79; TEMP 97.8; O2SAT 93
[2023-09-06] MEDS: IV D5/ 0.9% NACL 1,000 ML IV PRN (12:12)
[2023-09-06 16:19] VITALS: BP 151/78; TEMP 98.2; O2SAT 96
[2023-09-06 21:00] VITALS: BP 145/80; TEMP 98.2; O2SAT 94
[2023-09-07 07:30] VITALS: BP 180/83; TEMP 98.8; O2SAT 92
[2023-09-07] MEDS: LEVOTHYROXINE SODIUM 125 MCG TABLET PO SCH (07:30)
[2023-09-07] MEDS: PANTOPRAZOLE 40 MG TABLET.DR PO SCH (07:30)
[2023-09-07] MEDS: SENNOSIDES 8.6 MG TABLET PO SCH ×2 (09:00→16:29)
[2023-09-07] MEDS: MAGNESIUM OXIDE 400 MG TABLET PO SCH (09:00)
[2023-09-07] MEDS: OXCARBAZEPINE 150 MG TABLET PO SCH ×3 (09:00→16:29)
[2023-09-07] MEDS: ENOXAPARIN SODIUM 40 MG/0.4 ML DISP.SYRIN SQ SCH (09:00)
[2023-09-07] MEDS: MEMANTINE HCL 5 MG TABLET PO SCH ×2 (09:00→16:28)
[2023-09-07] MEDS: METOPROLOL SUCCINATE 25 MG TAB.SR.24H PO SCH (09:00)
[2023-09-07] MEDS: DOCUSATE SODIUM 100 MG CAPSULE PO SCH ×2 (09:00→16:28)
[2023-09-07] MEDS: FLUTICASONE PROPIONATE 16 GM BOTTLE NS SCH (10:53)
[2023-09-07] MEDS: CEFEPIME 2 GM in IV D5W 100 ML IV SCH ×2 (12:20→23:58)
[2023-09-07] MEDS: IV D5/ 0.9% NACL 1,000 ML IV PRN (12:21)
[2023-09-07 16:00] VITALS: BP 165/90; TEMP 97.2; O2SAT 94
[2023-09-07 20:00] VITALS: BP 169/79; TEMP 98.3; O2SAT 93
[2023-09-08] MEDS: LEVOTHYROXINE SODIUM 125 MCG TABLET PO SCH (07:30)
[2023-09-08] MEDS: PANTOPRAZOLE 40 MG TABLET.DR PO SCH (07:30)
[2023-09-08] MEDS: METOPROLOL SUCCINATE 25 MG TAB.SR.24H PO SCH (09:00)
[2023-09-08] MEDS: MAGNESIUM OXIDE 400 MG TABLET PO SCH (09:00)
[2023-09-08] MEDS: ENOXAPARIN SODIUM 40 MG/0.4 ML DISP.SYRIN SQ SCH (09:00)
[2023-09-08] MEDS: OXCARBAZEPINE 150 MG TABLET PO SCH ×3 (09:00→17:00)
[2023-09-08] MEDS: DOCUSATE SODIUM 100 MG CAPSULE PO SCH ×2 (09:00→17:00)
[2023-09-08] MEDS: MEMANTINE HCL 5 MG TABLET PO SCH ×2 (09:00→17:00)
[2023-09-08] MEDS: SENNOSIDES 8.6 MG TABLET PO SCH ×2 (09:00→17:00)
[2023-09-08] MEDS: FLUTICASONE PROPIONATE 16 GM BOTTLE NS SCH (09:40)
[2023-09-08] MEDS: CEFEPIME 2 GM in IV D5W 100 ML IV SCH (12:46)
== END 2023-09-08 17:45 | disposition hospice, home (50) | DRG 177 ==
LOC: ER 00:06 → MED 02:11 → TELE 03:54 → MED 11:18
PROVIDERS: ADMIT Nurse Practitioner Acute Care; ATTEND Nurse Practitioner Acute Care
DX: J15.69 Pneumonia due to other Gram-negative bacteria (principal); G93.41 Metabolic encephalopathy; J96.01 Acute respiratory failure with hypoxia; D68.69 Other thrombophilia; N39.0 Urinary tract infection, site not specified; J84.9 Interstitial pulmonary disease, unspecified; E78.5 Hyperlipidemia, unspecified; F02.80 Dementia in other diseases classified elsewhere, unspecified severity, without behavioral disturbance, psychotic disturbance, mood disturbance, and anxiety; G30.9 Alzheimer's disease, unspecified; I10 Essential (primary) hypertension; I25.10 Atherosclerotic heart disease of native coronary artery without angina pectoris; J45.909 Unspecified asthma, uncomplicated; D63.8 Anemia in other chronic diseases classified elsewhere; E03.9 Hypothyroidism, unspecified; R13.10 Dysphagia, unspecified; Z86.73 Personal history of transient ischemic attack (TIA), and cerebral infarction without residual deficits; Z95.1 Presence of aortocoronary bypass graft; Z88.0 Allergy status to penicillin; Z95.2 Presence of prosthetic heart valve; B96.20 Unspecified Escherichia coli [E. coli] as the cause of diseases classified elsewhere; Z74.09 Other reduced mobility; J20.9 Acute bronchitis, unspecified; F09 Unspecified mental disorder due to known physiological condition; J69.0 Pneumonitis due to inhalation of food and vomit; Z66 Do not resuscitate
CPT/HCPCS: 36415; 71045-TC; 71250-TC; 80048-TC; 80076-TC; 81001; 83735-TC; 83880; 84100-TC; 84443-TC; 84484-TC; 85025-TC; 85730-TC; 87081-TC; 87086-TC; 92526; 92611-TC; 97110-TC; 97116-TC; 97530-TC; A4216; A4223; C9803; G0378; J0692; J1650; J1956; J2930; J7030; J7042; J7060